=== PATIENT | male | born 1950 | race Caucasian/White ===

== ENCOUNTER 2017-01-23 09:00 | Inpatient (IN) | payer OTHER ==
[~2017-01-23] VITALS: Ht 190.5 cm; Wt 120.3 kg
[~2017-01-23 09:00] MED LIST: CELONTIN300 MG PO; DILANTIN100 MG PO; HYDROCODON-ACE1 EAC7 PO; JUBLIA4 ML TP; LO-DOSE ASPIRIN81 M1 PO; LOVENOX100 MG/1 M SC; METOPROLOL; METOPROLOL TART50 MG PO; PRINIVIL5 MG PO; VITAMIN B12-FO1 EACH PO; VITAMIN D31000 UNI2 PO; VITAMIN E400 UNIT PO; [UNRECOGNIZED DRUG - OTHER]
[2017-01-23 09:33] LABS: EOSINOPHIL (%) 2.3 % (0-5); EOSINOPHIL COUNT 0.2 K/uL (0-0.3); HEMATOCRIT 35.7 % (38.0-50.0); IMMATURE GRANULOCYTE COUNT 0.8 K/uL; LYMPHOCYTE COUNT 0.9 K/uL (1.0-2.8); MCH 30.3 PG (29.0-34.0); MCHC 33.9 G/DL (30.0-36.0); MCV 89.5 FL (86-99); MEAN PLAT.VOLUME 9.2 uM^3 (9.0-12.4); MONOCYTE (%) 9.5 % (3-12); MONOCYTE COUNT 0.8 K/uL (0-0.8); NEUTROPHIL COUNT 6.2 K/uL (1.8-6.4); PLATELET COUNT 268 K/uL (156-360); RBC DIS.WIDTH-CV 14.3 % (11.8-14.6); RBC DIS.WIDTH-SD 45.8 % (39-53); RED BLOOD COUNT 3.99 M/uL (4.00-5.50); WHITE BLOOD COUNT 8.1 K/uL (4.1-10.2)
[2017-01-23 09:43] LABS: INTER. NORMALIZED RATIO 1.2; PTT 27.7 (25-32)
[2017-01-23 09:45] LABS: CHLORIDE 105 mEq/L (99-109); POTASSIUM 3.7 mEq/L (3.7-5.4); SODIUM 140 mEq/L (136-147)
[2017-01-23 09:46] LABS: GLUCOSE 138 mg/dL (70-99)
[2017-01-23 09:48] LABS: ANION GAP 15 MEQ/L (2-14)
[2017-01-23 09:50] LABS: GFR ESTIMATE (CALCULATED) > 59 mL/min/
[2017-01-23 09:51] LABS: UREA NITROGEN (BUN) 12 mg/dL (9-23)
[2017-01-23 09:53] LABS: TROP-I INTERPRETATION NEGATIVE; TROPONIN-I 0.05 ng/mL (0.0-0.30)
[2017-01-23] MEDS ORDERED: VITAMIN B-6100 MG PO (11:19)
[2017-01-23 16:43] LABS: TROP-I INTERPRETATION NEGATIVE; TROPONIN-I 0.04 ng/mL (0.0-0.30)
[2017-01-23 20:56] VITALS: BP 131/72
[2017-01-23 22:46] LABS: TROP-I INTERPRETATION NEGATIVE; TROPONIN-I 0.03 ng/mL (0.0-0.30)
[2017-01-23 23:10] VITALS: BP 130/80
[2017-01-24 03:58] VITALS: BP 110/69
[2017-01-24 06:18] LABS: HEMATOCRIT 34.8 % (38.0-50.0); MCH 30.4 PG (29.0-34.0); MCHC 33.3 G/DL (30.0-36.0); MCV 91.3 FL (86-99); MEAN PLAT.VOLUME 9.8 uM^3 (9.0-12.4); PLATELET COUNT 242 K/uL (156-360); RBC DIS.WIDTH-CV 14.7 % (11.8-14.6); RBC DIS.WIDTH-SD 49.2 % (39-53); RED BLOOD COUNT 3.81 M/uL (4.00-5.50); WHITE BLOOD COUNT 6.8 K/uL (4.1-10.2)
[2017-01-24 06:44] LABS: ALKALINE PHOSPHATASE 86 IU/L (3-129); ANION GAP 9 MEQ/L (2-14); CHLORIDE 102 MEQ/L (99-109); GFR ESTIMATE (CALCULATED) > 59 mL/min/; SAMPLE HEMOLYSIS CHECK 0; SAMPLE ICTERIC CHECK 0; SAMPLE LIPEMIA CHECK 0; SODIUM 138 MEQ/L (136-147); TOTAL BILIRUBIN 0.4 MG/DL (0.0-1.0); UREA NITROGEN (BUN) 16 mg/dL (9-23)
[2017-01-24 06:46] LABS: GLUCOSE 86 mg/dL (70-99)
[2017-01-24 07:41] VITALS: BP 106/63
[2017-01-24 11:00] VITALS: BP 121/73
[2017-01-24 15:00] VITALS: BP 118/86
[2017-01-24 19:32] VITALS: BP 111/81
[2017-01-24 22:28] VITALS: BP 109/60
[2017-01-25 00:48] LABS: BASE EXCESS 0.4 mEq/L (-3 to +3); BICARBONATE 24.6 mEq/L (22-26); CARBOXY HGB 1.7 % (0-5); COMMENTS - BLOOD GASES C+; DEVICE NCH; METHEMOGLOBIN 1.4 % (0-1.5); O2 FLOW 15 L/MIN; PCO2 37 mm Hg (35-45); PO2 59 mm Hg (80-100); SITE LR; TOTAL RESP RATE 16 resp/min; pH 7.43 (7.35-7.45)
[2017-01-25 04:05] VITALS: BP 124/70
[2017-01-25 06:16] LABS: EOSINOPHIL (%) 3.4 % (0-5); EOSINOPHIL COUNT 0.2 K/uL (0-0.3); HEMATOCRIT 34.1 % (38.0-50.0); IMMATURE GRANULOCYTE (%) 0.3 % (0.0-0.7); LYMPHOCYTE COUNT 1.1 K/uL (1.0-2.8); MCH 28.8 PG (29.0-34.0); MCHC 31.7 G/DL (30.0-36.0); MCV 90.9 FL (86-99); MEAN PLAT.VOLUME 9.8 uM^3 (9.0-12.4); MONOCYTE (%) 14.7 % (3-12); NEUTROPHIL (%) 65.6 % (45-76); NEUTROPHIL COUNT 4.6 K/uL (1.8-6.4); PLATELET COUNT 265 K/uL (156-360); RBC DIS.WIDTH-CV 14.6 % (11.8-14.6); RBC DIS.WIDTH-SD 48.4 % (39-53); RED BLOOD COUNT 3.75 M/uL (4.00-5.50)
[2017-01-25 06:41] LABS: ANION GAP 9 MEQ/L (2-14); CHLORIDE 101 MEQ/L (99-109); GFR ESTIMATE (CALCULATED) > 59 mL/min/; GLUCOSE 86 mg/dL (70-99); POTASSIUM 3.9 MEQ/L (3.7-5.4); SAMPLE HEMOLYSIS CHECK 0; SAMPLE ICTERIC CHECK 0; SAMPLE LIPEMIA CHECK 0; SODIUM 136 MEQ/L (136-147); UREA NITROGEN (BUN) 15 mg/dL (9-23)
[2017-01-25 07:00] VITALS: BP 120/79
[2017-01-25 11:30] VITALS: BP 133/81
[2017-01-25 15:00] VITALS: BP 145/84
[2017-01-25 19:34] VITALS: BP 113/73
[2017-01-26] VITALS (7 sets, daily range): BP systolic 119–143; BP diastolic 59–91
[2017-01-26 06:47] LABS: HEMATOCRIT 35.4 % (38.0-50.0); MCH 28.7 PG (29.0-34.0); MCHC 31.6 G/DL (30.0-36.0); MCV 90.8 FL (86-99); MEAN PLAT.VOLUME 9.8 uM^3 (9.0-12.4); PLATELET COUNT 264 K/uL (156-360); RBC DIS.WIDTH-CV 14.5 % (11.8-14.6)
[2017-01-26 07:19] LABS: ANION GAP 9 MEQ/L (2-14); CHLORIDE 102 MEQ/L (99-109); GFR ESTIMATE (CALCULATED) > 59 mL/min/; GLUCOSE 82 mg/dL (70-99); SAMPLE HEMOLYSIS CHECK 0; SAMPLE ICTERIC CHECK 0; SAMPLE LIPEMIA CHECK 0; SODIUM 138 MEQ/L (136-147); UREA NITROGEN (BUN) 12 mg/dL (9-23)
[2017-01-27 04:20] VITALS: BP 130/81
[2017-01-27 05:58] LABS: EOSINOPHIL (%) 4.4 % (0-5); EOSINOPHIL COUNT 0.2 K/uL (0-0.3); HEMATOCRIT 36.1 % (38.0-50.0); IMMATURE GRANULOCYTE (%) 0.2 % (0.0-0.7); LYMPHOCYTE COUNT 1.2 K/uL (1.0-2.8); MCH 28.8 PG (29.0-34.0); MCHC 31.9 G/DL (30.0-36.0); MCV 90.3 FL (86-99); MEAN PLAT.VOLUME 9.7 uM^3 (9.0-12.4); MONOCYTE (%) 9.5 % (3-12); MONOCYTE COUNT 0.5 K/uL (0-0.8); NEUTROPHIL (%) 63.5 % (45-76); NEUTROPHIL COUNT 3.4 K/uL (1.8-6.4); PLATELET COUNT 297 K/uL (156-360); RBC DIS.WIDTH-CV 14.2 % (11.8-14.6); RBC DIS.WIDTH-SD 47.2 % (39-53); WHITE BLOOD COUNT 5.3 K/uL (4.1-10.2)
[2017-01-27 06:21] LABS: ANION GAP 9 MEQ/L (2-14); CHLORIDE 101 MEQ/L (99-109); GFR ESTIMATE (CALCULATED) > 59 mL/min/; GLUCOSE 82 mg/dL (70-99); POTASSIUM 3.9 MEQ/L (3.7-5.4); SAMPLE HEMOLYSIS CHECK 0; SAMPLE ICTERIC CHECK 0; SAMPLE LIPEMIA CHECK 0; SODIUM 138 MEQ/L (136-147); UREA NITROGEN (BUN) 11 mg/dL (9-23)
[2017-01-27 07:00] VITALS: BP 148/74
[2017-01-27 07:27] LABS: DIGOXIN 0.8 ng/mL (0.8-2.0)
[2017-01-27 11:30] VITALS: BP 142/80
[2017-01-27 17:00] VITALS: BP 139/81
[2017-01-27 19:40] VITALS: BP 110/74
[2017-01-28 00:06] VITALS: BP 122/74
[2017-01-28 04:15] VITALS: BP 134/63
[2017-01-28 05:29] LABS: EOSINOPHIL (%) 4.7 % (0-5); EOSINOPHIL COUNT 0.3 K/uL (0-0.3); HEMATOCRIT 36.4 % (38.0-50.0); IMMATURE GRANULOCYTE (%) 0.2 % (0.0-0.7); LYMPHOCYTE COUNT 1.4 K/uL (1.0-2.8); MCH 28.7 PG (29.0-34.0); MCHC 31.6 G/DL (30.0-36.0); MCV 90.8 FL (86-99); MEAN PLAT.VOLUME 9.9 uM^3 (9.0-12.4); MONOCYTE (%) 11.1 % (3-12); MONOCYTE COUNT 0.7 K/uL (0-0.8); NEUTROPHIL (%) 60.6 % (45-76); NEUTROPHIL COUNT 3.7 K/uL (1.8-6.4); PLATELET COUNT 332 K/uL (156-360); RBC DIS.WIDTH-CV 14.4 % (11.8-14.6); RBC DIS.WIDTH-SD 47.8 % (39-53); RED BLOOD COUNT 4.01 M/uL (4.00-5.50); WHITE BLOOD COUNT 6.2 K/uL (4.1-10.2)
[2017-01-28 05:51] LABS: ANION GAP 9 MEQ/L (2-14); CHLORIDE 103 MEQ/L (99-109); GFR ESTIMATE (CALCULATED) > 59 mL/min/; GLUCOSE 86 mg/dL (70-99); SAMPLE HEMOLYSIS CHECK 0; SAMPLE ICTERIC CHECK 0; SAMPLE LIPEMIA CHECK 0; SODIUM 138 MEQ/L (136-147); UREA NITROGEN (BUN) 11 mg/dL (9-23)
[2017-01-28 07:32] LABS: DIGOXIN 1.1 ng/mL (0.8-2.0)
[2017-01-28 07:45] VITALS: BP 122/63
[2017-01-28 11:15] VITALS: BP 128/81
[2017-01-28] MEDS ORDERED: LOPRESSOR100 M1 PO (14:43)
[2017-01-28] MEDS ORDERED: CARDIZEM CD120 MG PO (14:43)
[2017-01-28] MEDS ORDERED: DIGOXIN125 MCG PO (14:43)
[2017-01-28] MEDS ORDERED: LOVENOX100 MG/1 M SC (14:43)
== END 2017-01-28 15:46 | disposition home or self-care (01) | DRG 252 ==
LOC: EME 09:00 → 4EAST 14:49 → EDOF 14:49 → 4EAST 20:35
PROVIDERS: Emergency Medicine; Family Medicine; Hospitalist; Internal Medicine; Physician Assistant Medical
PROC: 06H03DZ Insertion of Intraluminal Device into Inferior Vena Cava, Percutaneous Approach (ICD-10-PCS; principal; 2017-01-27)
DX: I82.413 Acute embolism and thrombosis of femoral vein, bilateral (principal); I26.09 Other pulmonary embolism with acute cor pulmonale; J96.01 Acute respiratory failure with hypoxia; I50.23 Acute on chronic systolic (congestive) heart failure; J90 Pleural effusion, not elsewhere classified; I47.1 Supraventricular tachycardia; I48.4 Atypical atrial flutter; G40.909 Epilepsy, unspecified, not intractable, without status epilepticus; Z86.73 Personal history of transient ischemic attack (TIA), and cerebral infarction without residual deficits; Z86.711 Personal history of pulmonary embolism; Z86.718 Personal history of other venous thrombosis and embolism; I10 Essential (primary) hypertension; Z85.038 Personal history of other malignant neoplasm of large intestine; Z87.891 Personal history of nicotine dependence; G89.29 Other chronic pain; I27.2 Other secondary pulmonary hypertension; M21.371 Foot drop, right foot; I77.810 Thoracic aortic ectasia; J98.11 Atelectasis
CPT/HCPCS: 36415; 36600; 71010; 71275; 74177; 80048; 80053; 80061; 80162; 80185; 81003; 82378; 82803; 83036; 84443; 84484; 85025; 85027; 85610; 85730; 93005; 93306; 93970; 94799; 99281; 99285; C1769; C1894; J0153; J1160; J1650; J2250; J3010; J7030

== ENCOUNTER 2018-03-27 08:16 | Day surgery (SDC) | payer OTHER ==
[~2018-03-27] VITALS: Ht 190.5 cm; Wt 100.4 kg
[~2018-03-27 08:16] MED LIST changes: +CARDIZEM CD120 MG PO; +DIGOXIN125 MCG PO; +LOPRESSOR100 M1 PO; +VITAMIN B-6100 MG PO; +VITAMIN D2000 UNIT PO; -VITAMIN D31000 UNI2 PO
[2018-03-27 08:48] LABS: HEMATOCRIT 38.2 % (38.0-50.0); HEMOGLOBIN 13.4 G/DL (12.5-16.6); MCH 31.1 PG (29.0-34.0); MCHC 35.1 G/DL (30.0-36.0); MCV 88.6 FL (86-99); PLATELET COUNT 225 K/uL (156-360); RBC DIS.WIDTH-CV 13.7 % (11.8-14.6); RBC DIS.WIDTH-SD 44.8 % (39-53); RED BLOOD COUNT 4.31 M/uL (4.00-5.50); WHITE BLOOD COUNT 8.8 K/uL (4.1-10.2)
[2018-03-27 09:21] LABS: ALBUMIN 3.5 G/DL (3.2-4.8); ALKALINE PHOSPHATASE 97 IU/L (3-129); ALT (GPT) 9 IU/L (3-49); AST (GOT) 19 IU/L (2-34); CHLORIDE 97 MEQ/L (99-109); CREATININE 0.9 MG/DL (0.6-1.3); GFR ESTIMATE (CALCULATED) > 59 mL/min/ (58.99-99999); GLUCOSE 144 mg/dL (70-99); POTASSIUM 2.7 MEQ/L (3.7-5.4); SODIUM 138 MEQ/L (136-147); TOTAL BILIRUBIN 0.9 MG/DL (0.0-1.0); TOTAL PROTEIN 6.8 G/DL (6.4-8.3); UREA NITROGEN (BUN) 19 mg/dL (9-23)
[2018-03-27 09:25] LABS: TROP-I INTERPRETATION POSITIVE; TROPONIN-I 2.89 ng/mL (0.0-0.30)
[2018-03-27 10:03] LABS: BASE EXCESS 6.6 mEq/L (-3 to +3); BICARBONATE 28.7 mEq/L (22-26); CARBOXY HGB 1.9 % (0-5); COMMENTS - BLOOD GASES A+C+; DEVICE NC; O2 FLOW 4 L/MIN; PCO2 32 mm Hg (35-45); PO2 71 mm Hg (80-100); SITE LR; pH 7.56 (7.35-7.45)
[2018-03-27] MEDS ORDERED: VITAMIN B-12500 MC5 SL (11:04)
[2018-03-27] MEDS ORDERED: LOPRESSOR100 M1 PO (11:06)
[2018-03-27] MEDS ORDERED: CARTIA XT120 MG PO (11:07)
[2018-03-27] MEDS ORDERED: DIGOX250 MCG PO (11:07)
[2018-03-27] MEDS ORDERED: ZETIA10 MG PO (11:08)
[2018-03-27] MEDS ORDERED: XARELTO20 MG PO (11:09)
[2018-03-27 11:13] LABS: INTER. NORMALIZED RATIO 1.5
[2018-03-27 11:16] LABS: BASOPHIL (%) 0.2 % (0-1); EOSINOPHIL (%) 0.2 % (0-5); IMMATURE GRANULOCYTE (%) 0.4 % (0.0-0.7); LYMPHOCYTE (%) 11.2 % (15-42); LYMPHOCYTE COUNT 0.9 K/uL (1.0-2.8); MONOCYTE (%) 7.2 % (3-12); MONOCYTE COUNT 0.6 K/uL (0-0.8); NEUTROPHIL (%) 80.8 % (45-76); NEUTROPHIL COUNT 6.8 K/uL (1.8-6.4)
[2018-03-27 11:28] LABS: AMYLASE 41 IU/L (1-118); LIPASE 34 U/L (1.0-51.0); SERUM ETHYL ALCOHOL < 10 mg/dL
[2018-03-27 11:29] VITALS: BP 106/81
== END 2018-03-27 11:51 ==
LOC: EME 08:16 → ENRESERV 10:54 → CATH 11:22 → EME 11:22 → ENRESERV 11:29 → EME 11:31 → CATH 11:51 → CANRESERV 12:22 → ENRESERV 12:22
PROVIDERS: Nurse Practitioner Family
DX: I46.9 Cardiac arrest, cause unspecified (principal); I21.09 ST elevation (STEMI) myocardial infarction involving other coronary artery of anterior wall; I27.82 Chronic pulmonary embolism; I48.92 Unspecified atrial flutter; I42.9 Cardiomyopathy, unspecified; I11.0 Hypertensive heart disease with heart failure; I50.9 Heart failure, unspecified; Z85.048 Personal history of other malignant neoplasm of rectum, rectosigmoid junction, and anus; Z92.21 Personal history of antineoplastic chemotherapy; Z92.3 Personal history of irradiation; G40.909 Epilepsy, unspecified, not intractable, without status epilepticus; Z86.73 Personal history of transient ischemic attack (TIA), and cerebral infarction without residual deficits; I71.2 Thoracic aortic aneurysm, without rupture; Z66 Do not resuscitate; Z79.01 Long term (current) use of anticoagulants; Z91.19 Patient's noncompliance with other medical treatment and regimen; Z91.14 Patient's other noncompliance with medication regimen; I27.20 Pulmonary hypertension, unspecified; Z86.718 Personal history of other venous thrombosis and embolism; G89.29 Other chronic pain; I73.9 Peripheral vascular disease, unspecified; R29.6 Repeated falls; Z87.891 Personal history of nicotine dependence; Z98.890 Other specified postprocedural states; Z88.0 Allergy status to penicillin
CPT/HCPCS: 36600; 71275; 80048 91; 80053; 81003; 82150; 82803; 83690; 84484; 85025; 85025 91; 85027; 85610; 85730; 86850; 86900; 86901; 93005; C1769; C1894; G0480; J0171; J0461; J1644; J2250; J3010; J3480; J7030